=== PATIENT | male | born 1970 | race Caucasian/White ===

== ENCOUNTER 2024-02-11 06:41 | Day surgery (SDC) | payer BC ==
[~2024-02-11 06:41] MED LIST: Sodium Chloride 0.9% 10 ML Syringe FLUSH PRN; Sodium Chloride 0.9% 10 ML Syringe FLUSH SCH
[2024-02-11] MEDS: Lactated Ringers 1,000 ML IV SCH (07:00)
[2024-02-11] MEDS ORDERED: Midazolam 1 MG/ML 2 ML SDV ONE (08:26)
[2024-02-11] MEDS ORDERED: Lidocaine 2% 5 ML SDV ONE (08:26)
[2024-02-11] MEDS ORDERED: Propofol 200 MG/20 ML SDV ONE ×4 (08:26→08:54)
== END 2024-02-11 09:40 | disposition home or self-care (01) ==
LOC: JD.SDS 06:41
PROVIDERS: ATTEND Surgery
DX: Z12.11 Encounter for screening for malignant neoplasm of colon (principal); D12.7 Benign neoplasm of rectosigmoid junction; K57.30 Diverticulosis of large intestine without perforation or abscess without bleeding; K64.8 Other hemorrhoids; Z80.0 Family history of malignant neoplasm of digestive organs; I10 Essential (primary) hypertension; E78.5 Hyperlipidemia, unspecified
CPT/HCPCS: 45385; J2250; J2704; J7120; 00811; J3490